=== PATIENT | female | born 1940 | race Caucasian/White ===

== ENCOUNTER → 2017-05-26 | Outpatient (CLI) | payer MEDICARE ==
[~2017-05-26] MED LIST: ACETAMINOPHEN PO; ADVAIR 115-21 INH; ADVAIR HFA 115-12 GM INH; ALLEGRA PO; ALLERGY SHOTS; ASPIRIN; ASPIRIN81 MG PO; ASTELIN137 MCG; AVANDAMET 2 MG/1 TA1 PO; AVANDIA; AVAPRO; B-121000 MC1 PO; BACTRIM DS TABL1 TA1 PO; BAZA CLEANSE & P4 GM TOP; BIOFREEZE118 ML TOP; BUMETANIDE2 M1 PO; BUMEX2 MG PO; CARVEDILOL3.125 MG PO; CENTRUM240 ML; CLARITIN10 M3 PO; COLACE PO; COMBIVENT INH14.7 GM; COMBIVENT MININEB INH; COMBIVENT U/D3 ML INH; CORDARONE200 M1 PO; COREG3.125 MG PO; CORTAID; COUMADIN4 MG PO; COUMADIN5 MG PO; COUMADIN6 MG PO; DILTIAZEM 24HR180 M2 PO; DIOVAN HCT 160-1 TAB PO; DIOVAN PO; DULCOLAX10 MG/SUPP PR; DUONEB 2.5-0.5 M3 ML IH; ECOTRIN81 M1 PO; FERRO-TIME325 MG PO; FLONASE 0.05% N16 G1; FLONASE 0.05% N16 G1 INH; FLONASE16 GM; FLORASTOR250 M1 PO; FUROSEMIDE40 MG PO; GLIPIZIDE10 MG PO; GLUCOPHAGE XR500 MG; GLUCOPHAGE500 M1 PO; GLUCOTROL; GLUCOTROL PO; GLUCOTROL XL PO; IPRAT-ALBUT 0.5-3 ML IH; K-SOL20 MEQ/15 PO; KCL PO; LANTUS100 UNITS/ SUBQ; LASIX; LIDODERM30 EA TOP; LIPITOR40 MG PO; LISINOPRIL10 MG PO; LISINOPRIL2.5 MG PO; LISINOPRIL5 MG PO; LO-DOSE ASPIRIN81 M1 PO; LOPRESSOR PO; LORATADINE PO; LOTRIMIN AF90 GM TP; MAGNESIUM400 M1 PO; MELATONIN3 M4 PO; METOPROLOL TAR100 MG PO; MICRO-K; MICRO-K PO; MUCINEX DM ER1 EACH PO; MYCOSTATIN15 GM POW EXT; NASAL SPRAY30 M3 INH; NON-ASA500 M1 PO; NORCO 5/325 TAB1 TAB PO; NOVOLOG100 U/ML SUBQ; NYSTATIN10 G1 TOP; OMNICEF300 M1 PO; OSCAL D 500 MG; PREDNISONE PO; PREDNISONE10 MG/DOSE PO; PRILOSEC; PRILOSEC PO; PROCRIT20000 U/ML INJ; PROTONIX PO; PROTONIX40 MG/BLIS PO; QVAR7.3 GM; RHINOCORT AQUA8.6 GM; SENNA S TABLET1 TAB PO; SENNA8.6 M1 PO; SINGULAIR; SPIRIVA18 MCG INH; SYMBICORT INH; TRAMADOL HCL50 M1 PO; UNIVASC7.5 MG; ZOCOR; ZOFRAN4 MG/5 ML PO; ZYRTEC
--- NOTE | ~2017-05-26 | BD1 ---
[facility] A Service of [facility] & [facility] [place] RADIOLOGY TEXT RESULTS PATIENT: NOEMY ALEMAN LOCATION: [facility] : 44 UNIT #: [id number] AGE: [address]: Anton Cruz MD SEX: F ORDER DR: [id number] [facility] [address] [place], [place] [address] [id number] O MR#: [id number] Acc #: [id number] NAME: NOEMY ALEMAN : 1940 SEX: F STUDY DATE/TIME: 05/26/2017 11:20 UNIT: [facility] ROOM: STUDY DESCRIPTION: Dexa Bone Dens 1+ Site Attending Physician: Anton Cruz M.D. Referring Physician: nAton Cruz M.D. Ordering Physician: Anton Cruz M.D. Primary Care Physician: Anton Cruz M.D. MEDICAL IMAGING REPORT This report is preliminary unless electronic signature is present EXAM Bone densitometry study. INDICATIONS Post menopausal osteoporosis screening. COMPARISON There is no comparison. TECHNIQUE The study was done on a Hologic machine. FINDINGS The L1-L4 bone mineral density is 0.931 g/cm2, T-score -1.1. Left femoral neck bone mineral density 0.432 g/cm2, T-score -3.8, Z- score -1.7. IMPRESSION Osteoporosis is demonstrated in the left femoral neck with a T-score of -3.8. No comparison study. Dictated by... Rosales Casey M.D. THIS IS AN ELECTRONICALLY VERIFIED REPORT Rosales Casey M.D. at 05/28/2017 8:36 AM SUKI/harmony TD: 05/27/2017 16:41 JOB #: [id number] MEDICAL IMAGING REPORT Page 1 of 1 COPY
== END | disposition home or self-care (01) ==
LOC: CWCC 10:58
DX: M81.0 Age-related osteoporosis without current pathological fracture (principal)
CPT/HCPCS: 77080